=== PATIENT | male | born 1935 | race Caucasian/White ===

== ENCOUNTER 2016-11-13 14:16 | Inpatient (IN) | payer MEDICARE ==
[~2016-11-13] VITALS: Ht 167.6 cm; Wt 67.1 kg
[~2016-11-13 14:16] MED LIST: CEPH500C PO; CLIN300C3 PO; DUTA1CPM PO; FINA5TAB6 PO; HYDR1TAB8 OP; OXYC-12 PO; TMSL.4C PO
[2016-11-13] MEDS ORDERED: fentaNYL INJECTION 100 MCG/2 ML AMP ONE (14:18)
--- NOTE | 2016-11-13 14:29 | ED Abdominal Pain ---
General Chief Complaint: Abdominal/GI Problems Stated Complaint: ABD PAIN Source of Information: Patient Exam Limitations: No Limitations History of Present Illness Time Seen By Provider: 14:27 Initial Comments To ER with reports of epigastric abdominal pain that started relatively suddenly about 1-1.5 hours prior to arrival while eating a lobster club sandwich at [facility] in [place]. No vomiting. No change in bowel habits. No history of this. States he had only taken a few bites of his sandwich when this pain hit him. Pain does not radiate and is worsened with deep breathing. Timing/Duration: 1 Hour Severity/Quality: Severe Location: Epigastric, Periumbilical Radiation: No Radiation Activities at Onset: None Associated Symptoms: No Back Pain, No Fever/Chills, No Nausea/Vomiting Allergies and Home Medications Allergies Coded Allergies: Sulfa (Sulfonamide Antibiotics) (Unverified Allergy, Mild, 02/07/15) Home Medications Finasteride 5 Mg Tablet 5 MG PO DAILY (Reported) Oxycodone Hcl/Acetaminophen 1 Each Tablet #35 1-2 EACH PO Q4H Prescribed by: SOFIA ARELLANO on 02/07/15 1145 Tamsulosin Hcl 0.4 Mg Cap 0.4 MG PO DAILY@1800 (Reported) Review of Systems Constitutional: see HPINo chills, No fever EENTM: No Symptoms Reported Respiratory: No Symptoms Reported Cardiovascular: No Symptoms Reported Gastrointestinal: See HPI Abdominal PainDenies Constipated, Denies Diarrhea, Denies Nausea, Denies Vomiting Genitourinary: No Symptoms Reported Musculoskeletal: no symptoms reported Skin: no symptoms reported Psychiatric/Neurological: No Symptoms Reported Endocrine: No Symptoms Reported Hematologic/Lymphatic: No Symptoms Reported Past Olbdlpc-Bbxpmj-Cdamwn Hx Patient Social History Recent Foreign Travel: No Contact w/Someone Who Travel: No Surgeries HX Surgeries: No Respiratory Hx Respiratory Disorders: No Cardiovascular Hx Cardiac Disorders: No Neurological Hx Neurological Disorders: No Reproductive System Hx Reproductive Disorders: No Sexually Transmitted Disease: No HIV/AIDS: No Genitourinary Hx Genitourinary Disorders: Yes Genitourinary Disorders: Benign Prostatic Hyperpl Gastrointestinal Hx Gastrointestinal Disorders: No Musculoskeletal Hx Musculoskeletal Disorders: No HEENT HX ENT Disorders: Yes (GLASSES) Loss of Vision: Denies Hearing Impairment: Denies Cancer Hx Cancer: No Psychosocial Hx Psychiatric Problems: No Integumentary HX Skin/Integumentary Disorder: No Blood Transfusions Hx Blood Disorders: No Adverse Reaction to a Blood Tr: No Physical Exam Vital Signs VS - Last 72 Hours, by Label 11/13/16 14:18 Temp 96.6 Pulse 67 Resp 18 B/P 126/96 O2 Delivery Room Air Capillary Refill : General Appearance: WD/WN no apparent distress HEENT: PERRL/EOMI normal ENT inspection Neck: non-tender full range of motion Respiratory: no respiratory distress no accessory muscle use Cardiovascular: regular rate, rhythm no murmur Gastrointestinal: normal bowel sounds soft tenderness Extremities: normal range of motion non-tender Neurologic/Psychiatric: alert normal mood/affect oriented x 3 Skin: normal color warm/dry Progress/Results/Core Measures Results/Orders Lab Results Laboratory Tests Test 11/13/16 14:25 Range/Units Alanine Aminotransferase (ALT/SGPT) 21 0-55 U/L Albumin 4.2 3.2-4.5 G/DL Alkaline Phosphatase 80 40-136 U/L Amylase Level 54 25-125 U/L Anion Gap 11 5-14 MMOL/L Aspartate Amino Transf (AST/SGOT) 21 5-34 U/L BUN/Creatinine Ratio 17 Basophils # (Auto) 0.0 0.0-0.1 10^3/uL Basophils (%) (Auto) 1 0-10 % Blood Urea Nitrogen 24 H 7-18 MG/DL Calcium Level 8.9 8.5-10.1 MG/DL Carbon Dioxide Level 24 21-32 MMOL/L Chloride Level 105 98-107 MMOL/L Creatinine 1.41 H 0.60-1.30 MG/DL Eosinophils # (Auto) 0.1 0.0-0.3 10^3/uL Eosinophils (%) (Auto) 2 0-10 % Estimat Glomerular Filtration Rate 48 Glucose Level 125 H 70-105 MG/DL Hematocrit 48 40-54 % Hemoglobin 16.0 13.3-17.7 G/DL Lipase 15 8-78 U/L Lymphocytes # (Auto) 1.0 1.0-4.0 X 10^3 Lymphocytes (%) (Auto) 16 12-44 % Mean Corpuscular Hemoglobin 31 25-34 PG Mean Corpuscular Hemoglobin Concent 34 32-36 G/DL Mean Corpuscular Volume 93 80-99 FL Mean Platelet Volume 10.0 7.4-10.4 FL Monocytes # (Auto) 0.5 0.0-1.0 X 10^3 Monocytes (%) (Auto) 8 0-12 % Neutrophils # (Auto) 4.6 1.8-7.8 X 10^3 Neutrophils (%) (Auto) 74 42-75 % Platelet Count 235 130-400 10^3/uL Potassium Level 4.2 3.6-5.0 MMOL/L Red Blood Count 5.10 4.35-5.85 10^6/uL Red Cell Distribution Width 14.7 H 10.0-14.5 % Sodium Level 140 135-145 MMOL/L Total Bilirubin 2.0 H 0.1-1.0 MG/DL Total Protein 6.5 6.4-8.2 G/DL White Blood Count 6.2 4.3-11.0 10^3/uL My Orders Orders-JACEY RODRIGEZ APRN Fentanyl Injection (Sublimaze Injection (11/13/16 14:30) Fentanyl Injection (Sublimaze Injection (11/13/16 14:18) Amylase (11/13/16 14:25) Iohexol Injection (Omnipaque 350 Mg/Ml 1 (11/13/16 14:30) Ns (Ivpb) (Sodium Chloride 0.9% Ivpb Bag (11/13/16 14:30) Ondansetron Injection (Zofran Injectio (11/13/16 14:30) Ct Abdomen/Pelvis Wo (11/13/16 14:59) Fentanyl Injection (Sublimaze Injection (11/13/16 15:45) Ondansetron Injection (Zofran Injectio (11/13/16 15:45) Medications Given in ED Current Medications Medications Dose Ordered Sig/Salvador Route Start Time Stop Time Status Last Admin Dose Admin Fentanyl Citrate 50 mcg ONCE ONCE IVP 11/13/16 14:30 11/13/16 14:31 DC 11/13/16 14:24 50 MCG Fentanyl Citrate 50 mcg ONCE ONCE IVP 11/13/16 15:45 11/13/16 15:46 DC 11/13/16 15:41 50 MCG Ondansetron HCl 4 mg ONCE ONCE IVP 11/13/16 14:30 11/13/16 14:31 DC 11/13/16 14:48 4 MG Ondansetron HCl 4 mg ONCE ONCE IVP 11/13/16 15:45 11/13/16 15:46 DC 11/13/16 15:43 4 MG Vital Signs/I&O Vital Sign - Last 12Hours 11/13/16 14:18 Temp 96.6 Pulse 67 Resp 18 B/P 126/96 O2 Delivery Room Air Diagnostic Imaging Diagonstic Imaging: CT Comments NAME: JACEY GALAVIZ JR [facility] REC#: [id number] PT STATUS: REG ER : 1935 PHYSICIAN: JACEY RODRIGEZ [employer] ADMIT DATE: 11/13/16/ER Draft Date of Exam:11/13/16 CT ABDOMEN/PELVIS WO PROCEDURE: CT abdomen and pelvis without contrast. TECHNIQUE: Multiple contiguous axial images were obtained through the abdomen and pelvis without the use of intravenous contrast. INDICATION: Severe abdominal pain and nausea. FINDINGS: Noncontrasted images of the liver and spleen reveal no focal abnormality although there is high-density material in the dependent portion of the gallbladder fundus. There is no evidence of biliary ductal dilatation. Note is made of large paraesophageal hiatal hernia. Stomach is distended with gas and fluid. There is no evidence of pancreatic or adrenal gland lesion. There is no evidence of renal stone, hydronephrosis or mass. There is a small amount of high-density material along the right trigone and in the dependent portion of the bladder. There is no free fluid seen in the abdomen or pelvis. There are numerous diverticula throughout the distal colon without evidence of andrés-colonic edema or inflammation. There is no focal fluid collection seen to indicate an abscess. There is mild to moderate lower lumbar spondylosis. IMPRESSION: Moderate sized paraesophageal hiatal hernia. There is evidence of cholelithiasis. There is high density material seen within the distal right ureter at the level of the trigone and within the dependent portion of the bladder. These do not have the appearance of individual calculi; however, clinical correlation would be of use. Otherwise, there is no evidence of acute abnormality seen in the abdomen or pelvis. Dictated on workstation # [id number] Dict: 11/13/16 1524 Trans: 11/13/16 1535 [facility] [id number] Interpreted by: DINH MURILLO MD Electronically signed by: Departure Communication Time/Spoke to Admitting Phy: 15:50 Communication Discussed the case with Dr. Anderson. We will place the patient in the hospital overnight with pain and nausea medication. Does not recommend antibiotics given the normal white count and the absence of fevers and we are not treating acute cholecystitis, rather symptomatic cholelithiasis. Patient's pain has been difficult to control as well as his nausea while in the emergency room. Ultrasound of the gallbladder cannot be performed at this time given that he has eaten one hour prior to arrival. Time/Spoke to Consulting Physi: 15:56 Impression Impression: Primary Impression: Cholelithiasis Additional Impression: Hiatal hernia Disposition: ADMITTED INPATIENT Condition: Stable Decision to Admit Reason: Admit from ER (General) Decision to Admit/Date: Nov 13, 2016 Time/Decision to Admit Time: 15:51 Departure-Patient Inst. Referrals: ABIODUN BENAVIDEZ MD (PCP/Family) Primary Care Physician Copy Copies To 1: ABIODUN BENAVIDEZ MD, PETER J APRN Nov 13, 2016 14:29 JACEY RODRIGEZ APRN Nov 13, 2016 14:29
[2016-11-13] MEDS ORDERED: NS 100 ML (IVPB) BAG IV ONE (14:30)
[2016-11-13] MEDS ORDERED: IOHEXOL 350 MG/ML 100 ML (OMNIPAQUE 350) VIAL IV ONE (14:30)
[2016-11-13] MEDS ORDERED: ONDANSETRON 4 MG/2 ML (SDV) Z0FRAN IVP ONE ×2 (14:30→15:45)
[2016-11-13] MEDS ORDERED: fentaNYL INJECTION 100 MCG/2 ML AMP IVP ONE ×2 (14:30→15:45)
[2016-11-13 14:33] LABS: BASOPHILS % (AUTO) 1 % (0-10); EOSINOPHILS # (AUTO) 0.1 10^3/uL (0.0-0.3); EOSINOPHILS % (AUTO) 2 % (0-10); LYMPHOCYTES % (AUTO) 16 % (12-44); MEAN CORPUSCULAR HEMOGLOBIN 31 PG (25-34); MEAN CORPUSCULAR HGB CONC 34 G/DL (32-36); MEAN CORPUSCULAR VOLUME 93 FL (80-99); MONOCYTES # (AUTO) 0.5 X 10^3 (0.0-1.0); MONOCYTES % (AUTO) 8 % (0-12); NEUTROPHILS # (AUTO) 4.6 X 10^3 (1.8-7.8); NEUTROPHILS % (AUTO) 74 % (42-75); PLATELET COUNT 235 10^3/uL (130-400); RED CELL DISTRIBUTION WIDTH 14.7 % (10.0-14.5); WHITE BLOOD COUNT 6.2 10^3/uL (4.3-11.0)
[2016-11-13 14:57] LABS: ALBUMIN 4.2 G/DL (3.2-4.5); CALCIUM 8.9 MG/DL (8.5-10.1); CREATININE SERUM 1.41 MG/DL (0.60-1.30); POTASSIUM 4.2 MMOL/L (3.6-5.0); TOTAL PROTEIN 6.5 G/DL (6.4-8.2)
--- NOTE | 2016-11-13 15:35 | Diagnostic Imaging Report ---
PROCEDURE: CT abdomen and pelvis without contrast. TECHNIQUE: Multiple contiguous axial images were obtained through the abdomen and pelvis without the use of intravenous contrast. INDICATION: Severe abdominal pain and nausea. FINDINGS: Noncontrasted images of the liver and spleen reveal no focal abnormality although there is high-density material in the dependent portion of the gallbladder fundus. There is no evidence of biliary ductal dilatation. Note is made of large paraesophageal hiatal hernia. Stomach is distended with gas and fluid. There is no evidence of pancreatic or adrenal gland lesion. There is no evidence of renal stone, hydronephrosis or mass. There is a small amount of high-density material along the right trigone and in the dependent portion of the bladder. There is no free fluid seen in the abdomen or pelvis. There are numerous diverticula throughout the distal colon without evidence of andrés-colonic edema or inflammation. There is no focal fluid collection seen to indicate an abscess. There is mild to moderate lower lumbar spondylosis. IMPRESSION: Moderate sized paraesophageal hiatal hernia. There is evidence of cholelithiasis. There is high density material seen within the distal right ureter at the level of the trigone and within the dependent portion of the bladder. These do not have the appearance of individual calculi; however, clinical correlation would be of use. Otherwise, there is no evidence of acute abnormality seen in the abdomen or pelvis. Dictated by: Dictated on workstation # [id number]
[2016-11-13] MEDS ORDERED: HYDROmorphone (DILAUDID) 2 MG/ML VIAL ONE (16:52)
[2016-11-13] MEDS ORDERED: HYDROmorphone (DILAUDID) 2 MG/ML VIAL IVP ONE (17:00)
[2016-11-13 17:10] VITALS: BP 122/81
[2016-11-13] MEDS ORDERED: ONDANSETRON 4 MG/2 ML (SDV) Z0FRAN IVP PRN (17:30)
[2016-11-13] MEDS ORDERED: fentaNYL INJECTION 100 MCG/2 ML AMP IVP PRN (17:30)
[2016-11-13] MEDS: NS IV 1000 ML 1,000 ML IV SCH (17:48)
[2016-11-13 19:40] VITALS: BP 115/77
[2016-11-13] MEDS ORDERED: FLU TRIvalent (5 YOA+) 2016-17 (AFLURIA) 0.5 ML IM ONE (20:45)
[2016-11-14] VITALS: BP 114/71
[2016-11-14] MEDS: NS IV 1000 ML 1,000 ML IV SCH ×3 (03:45→23:30)
[2016-11-14 04:00] VITALS: BP 114/71
[2016-11-14 06:00] VITALS: BP 106/63
[2016-11-14 07:17] LABS: ALBUMIN 3.7 G/DL (3.2-4.5); CALCIUM 8.3 MG/DL (8.5-10.1); CREATININE SERUM 1.33 MG/DL (0.60-1.30); POTASSIUM 4.1 MMOL/L (3.6-5.0); TOTAL PROTEIN 5.7 G/DL (6.4-8.2)
[2016-11-14] MEDS ORDERED: LIDOCAINE PF 2% 10 ML (XYLOCAINE) AMP ONE (07:17)
[2016-11-14] MEDS ORDERED: ROCURONIUM 50 MG/5 ML (ZEMURON) VIAL IV ONE (07:17)
[2016-11-14] MEDS ORDERED: LIDOCAINE JELLY 2% (XYLOCAINE) 5 ML TUBE ONE (07:17)
[2016-11-14] MEDS ORDERED: proPOfol 200 MG/20 ML (DIPRIVAN) VIAL IV ONE (07:17)
[2016-11-14] MEDS ORDERED: ONDANSETRON 4 MG/2 ML (SDV) Z0FRAN ONE (07:17)
[2016-11-14] MEDS ORDERED: LACTATED RINGERS 1,000 ML IV ONE ×2 (07:17→11:31)
[2016-11-14] MEDS ORDERED: fentaNYL INJECTION 100 MCG/2 ML AMP ONE (07:17)
[2016-11-14] MEDS ORDERED: MIDAZOLAM 2 MG/2 ML (VERSED) VIAL ONE (07:17)
[2016-11-14 08:28] VITALS: BP 131/71
--- NOTE | 2016-11-14 08:35 | Diagnostic Imaging Report ---
PROCEDURE: US Gallbladder. TECHNIQUE: Multiple real-time grayscale images were obtained over the right upper quadrant in various projections. INDICATION: Symptomatic cholecystitis, cholelithiasis. EXAMINATION: Ultrasound gallbladder 11/14/2016. FINDINGS: Liver unremarkable. Gallbladder wall not thickened. There is sludge in the fundus with no stones identified. No pericholecystic fluid. Common bile duct not seen. Pancreas not visualized. Right kidney 11.1 cm in greatest dimension and unremarkable. IMPRESSION: Sludge in the gallbladder with no other changes suggestive of acute cholecystitis. Small stones not excluded. Correlate with symptoms. Overall limited evaluation. Some of the structures are not well seen. If no intervention is performed, short-term followup could ensure stability. Dictated by: Dictated on workstation # [id number]
--- NOTE | 2016-11-14 08:54 | History & Physicial ---
History of Present Illness History of Present Illness Reason for visit/HPI RUQ pain and nausea of one day's duration. Evaluation shows gallstones with elevated bilirubin. Date of Admission Nov 13, 2016 at 4:10 pm I consulted on this patient on 11/14/16 08:46 Attending Physician Mamie Melchor MD Admitting Physician Paulie Leon MD Consult Allergies and Home Medications Allergies Coded Allergies: Sulfa (Sulfonamide Antibiotics) (Unverified Allergy, Mild, 02/07/15) Home Medications Finasteride 5 Mg Tablet 5 MG PO DAILY (Reported) Tamsulosin Hcl 0.4 Mg Cap 0.4 MG PO DAILY@1800 (Reported) Past Jjieeyz-Ypjoai-Imvfqi Hx Patient Social History Marrital Status: Employed/Student: employed Alcohol Use: Regular Use Recreational Drug Use: No Smoking Status: Never a Smoker Physical Abuse Screen: No Sexual Abuse: No Recent Foreign Travel: No Contact w/other who traveled: No Recent Hopitalizations: No Recent Infectious Disease Expo: No Seasonal Allergies Seasonal Allergies: No Surgeries HX Surgeries: No Respiratory Hx Respiratory Disorders: No Cardiovascular Hx Cardiovascular Disorders: No Cardiac Disorders: Hypertension Neurological Hx Neurological Disorders: No Reproductive System Hx Reproductive Disorders: No Sexually Transmitted Disease: No HIV/AIDS: No Genitourinary Hx Genitourinary Disorders: No Genitourinary Disorders: Benign Prostatic Hyperpl Gastrointestinal Hx Gastrointestinal Disorders: No Gastrointestinal Disorders: Hiatal Hernia Musculoskeletal Hx Musculoskeletal Disorders: No Endocrine Hx Endocrine Disorders: No HEENT HX ENT Disorders: No (GLASSES) Loss of Vision: Denies Hearing Impairment: Denies Cancer Hx Cancer: No Psychosocial Hx Psychiatric Problems: No Integumentary HX Skin/Integumentary Disorder: No Blood Transfusions Hx Blood Disorders: No Adverse Reaction to a Blood Tr: No Constitutional: malaise EENTM: no symptoms reported Respiratory: no symptoms reported Cardiovascular: no symptoms reported Gastrointestinal: RUQ abdominal pain Genitourinary: no symptoms reported Musculoskeletal: no symptoms reported Skin: no symptoms reported Psychiatric/Neurological: No Symptoms Reported Physical Exam Vital Signs Vital Sign - Last 12Hours 11/13/16 11/13/16 14:18 16:52 Temp 96.6 Pulse 67 Resp 18 B/P 126/96 Pulse Ox 95 O2 Delivery Room Air Capillary Refill : Less Than 3 Seconds General Appearance: No Apparent Distress HEENT: PERRL/EOMI Neck: Full Range of Motion Normal Inspection Respiratory: Lungs Clear Cardiovascular: Regular Rate, Rhythm Gastrointestinal: Normal Bowel Sounds Non Tender Back: Normal Inspection Extremity: Normal Capillary Refill Skin: Warm/Dry Comments Mendoza's sign negative. No recurrence of RIH Assessment/Plan Assessment and Plan Gallstones with elevated bilirubin. Choledocholithiasis to be considered. For laparoscopic cholecystectomy with cholangiogram. Discussed in detail and scheduled for this am. Admission Diagnosis Gallstones Clinical Quality Measures DVT/VTE Risk/Contraindication: VTE Present on Admission: No Risk Factor Score Per Nursin RFS Level Per Nursing on Admit: 2=Moderate MAMIE MELCHOR MD Nov 14, 2016 8:53 am
--- NOTE | 2016-11-14 08:55 | Progress Note-Pre Operative ---
Pre-Operative Progress Note H&P Reviewed The H&P was reviewed, patient examined and no changes noted. Date H&P Reviewed: Nov 14, 2016 Time H&P Reviewed: 08:54 Pre-Operative Diagnosis: Gallstones with elevated liver enzymes MAMIE MELCHOR MD Nov 14, 2016 8:54 am
[2016-11-14] MEDS ORDERED: ceFAZolin INJECTION 1,000 MG in NORMAL SALINE (BAXTER MINI) 50 ML IV NR (09:00)
[2016-11-14] MEDS ORDERED: metroNIDAZOLE 500MG/100ML IVPB 100 ML IV NR (09:00)
[2016-11-14] MEDS: FINASTERIDE (PROSCAR) 5 MG TAB PO SCH (09:04)
[2016-11-14] MEDS: PANTOPRAZOLE 40 MG/10 ML (PROTONIX) VIAL IV SCH (09:05)
[2016-11-14] MEDS ORDERED: SEVOFLURANE (ULTANE) 15 ML INHAL SOLN ONE ×5 (10:33→11:30)
[2016-11-14] MEDS ORDERED: BUP/EPI 0.25% 1:200,000 (MARCAINE) 30 ML VIAL INJ ONE (10:43)
--- NOTE | 2016-11-14 11:35 | Progress Note-Post Operative ---
Post-Operative Progess Note Pre-Operative Diagnosis Gallstones with elevated liver enzymes Post-Operative Diagnosis same Post-Op Procedure Note Date of Procedure: Nov 14, 2016 Name of Procedure: 1.laparoscopic cholecystectomy 2. Intraoperative cholangiogram Anesthesia Type Gen. Estimated blood loss (mL): minimal Specimen(s) collected gallbladder MAMIE MELCHOR MD Nov 14, 2016 11:35 am
[2016-11-14] MEDS ORDERED: HYDR-3812 PO (11:38)
--- NOTE | 2016-11-14 11:39 | Discharge Inst-Simple/Standard ---
Discharge Inst-Standard Discharge Medications New, Converted or Re-Newed RX: RX on Chart Patient Instructions/Follow Up Plan of Care/Instructions/FU: dressings off in a.m. Incentive spirometry. Follow-up in 2 weeks. Activity as Tolerated: Yes Discharge Diet: No Restrictions Planned Outpatient Orders/Ref. Pneu Vac Indicated: Yes MAMIE MELCHOR MD Nov 14, 2016 11:39 am
[2016-11-14] MEDS ORDERED: NEOSTIGMINE (BLOXIVERZ ) 1 MG/1ML 10 ML VIAL ONE (11:43)
[2016-11-14] MEDS ORDERED: GLYCOPYRROLATE 0.2 MG/ML (ROBINUL) 2 ML VIAL ONE (11:43)
[2016-11-14] MEDS ORDERED: HYDROcodone/APAP 5 MG/325 MG (LORTAB) TAB PO PRN (11:45)
[2016-11-14] MEDS: morphine INJ 10 MG/ML 1ML (SYR OR VIAL) IVP PRN ×2 (11:57→12:04)
[2016-11-14] MEDS ORDERED: morphine INJ 10 MG/ML 1ML (SYR OR VIAL) IV ONE (11:57)
[2016-11-14] MEDS ORDERED: MEPERIDINE (DEMEROL) INJ 50 MG/ML IVP PRN (12:00)
[2016-11-14] MEDS ORDERED: ONDANSETRON 4 MG/2 ML (SDV) Z0FRAN IVP PRN (12:00)
[2016-11-14] MEDS ORDERED: MEPERIDINE (DEMEROL) INJ 50 MG/ML IV ONE (12:12)
[2016-11-14 16:49] VITALS: BP 128/73
[2016-11-14] MEDS ORDERED: ALFUZOSIN HCL 10 MG TAB (UROXATRAL) PO SCH (18:00)
--- NOTE | 2016-11-14 18:35 | Diagnostic Imaging Report ---
Exam: Fluoroscopy during surgery. Date: October. Indication: 81-year-old male, status post cholecystectomy. Comparison: November 14, 2016. November 13, 2016. Findings: 62.4 seconds of fluoroscopic time was utilized for assistance with procedure. There is opacification of the common bile duct with extension of contrast into the duodenum. There is no identified filling defect within the duodenum. There is also contrast in the right upper quadrant which does not definitely conform to a ductal distribution. Recommend correlation with procedure. Impression: 1. No identified filling defect or abnormal dilation of the common bile duct. 2. Contrast in the right upper quadrant which does not definitely conform to a ductal distribution. Recommend correlation with procedural findings. Dictated by: Dictated on workstation # [id number]
[2016-11-14 20:44] VITALS: BP 122/66
[2016-11-15] VITALS: BP 117/65
[2016-11-15 04:00] VITALS: BP 108/52
[2016-11-15] MEDS: NS IV 1000 ML 1,000 ML IV SCH (06:43)
[2016-11-15 08:00] VITALS: BP 137/63
[2016-11-15] MEDS: PANTOPRAZOLE 40 MG/10 ML (PROTONIX) VIAL IV SCH (09:02)
[2016-11-15] MEDS: FINASTERIDE (PROSCAR) 5 MG TAB PO SCH (09:02)
--- NOTE | 2016-11-15 10:57 | Anesthesia-General Post-Op ---
General Patient Condition Mental Status/LOC: Same as Preop Cardiovascular: Satisfactory Nausea/Vomiting: Absent Respiratory: Satisfactory Pain: Controlled Complications: Absent Post Op Complications Complications None Follow Up Care/Instructions Patient Instructions None needed. Anesthesia/Patient Condition Patient Condition Patient is doing well, no complaints, stable vital signs, no apparent adverse anesthesia problems. No complications reported per nursing. Pt to be discharged to home shortly. JOB HICKS CRNA Nov 15, 2016 10:57
--- NOTE | 2016-11-15 11:43 | Progress Note-Standard ---
Standard Progress Note Progress Notes/Assess & Plan Progress/Assessment & Plan 11/15/16:doing well. Low-grade fever, currently afebrile. Pain control adequate. Could be discharged home. Final Diagnosis gallstones with choledocholithiasis. MAMIE MELCHOR MD Nov 15, 2016 11:43 am
[2016-11-15 12:00] VITALS: BP 137/63
--- NOTE | 2016-11-15 12:42 | OPERATIVE REPORT ---
PROCEDURE PHYSICIAN: MAMIE MELCHOR DATE OF PROCEDURE: 11/14/2016 PREOPERATIVE DIAGNOSIS: 1. Gallstones. 2. Elevated liver enzymes. POSTOPERATIVE DIAGNOSIS: 1. Gallstones. 2. Elevated liver enzymes. OPERATION: 1. Laparoscopic cholecystectomy. 2. Intraoperative cholangiogram. SURGEON: Justin. ANESTHESIA: General anesthesia. BLOOD LOSS: Minimal. FLUIDS: 800 mL crystalloids. TYPE OF WOUND: Type 2 (clean/contaminant wound). INDICATION FOR PROCEDURE: This gentleman presented with gallstones and elevated bilirubin, raising the concern for choledocholithiasis. He was offered prompt laparoscopic cholecystectomy with cholangiogram. Should stones be found in the common bile duct, the requirement for therapeutic ERCP was highlighted. DESCRIPTION OF PROCEDURE: He was placed supine on the operating table and general anesthesia induced using an endotracheal. A gram of Ancef and 500 mg of Flagyl were administered intravenously as prophylaxis against wound infection. Sequential compression devices were placed around his legs, to minimize the risk of venous thrombus. Abdomen was prepared and draped in the usual sterile manner. A supraumbilical incision was made and the linea alba incised vertically. A Linn cannula was placed and carbon dioxide insufflated to an intra-abdominal pressure of 15 mmHg. Anatomy was visualized using a 30 degrees, conventional laparoscope. The gallbladder was rather elongated. Under direct view, I placed a 5 mm trocar over the epigastric region, followed by 2 additional 5 mm trocars along the right side of the abdomen. The fundus of the gallbladder was retracted cephalad and infundibulum grasped with another pair of forceps. Peritoneum overlying Calot's triangle was incised using a blunt dissector, delineating the cystic duct and artery. Cholangiogram was obtained using a taut catheter. Multiple black pigmented stones extruded from the cystic duct stump. The study itself showed no other filling defects and the contrast eventually flowed freely into the duodenum. The catheter was then removed and the cystic duct controlled using a Ligaclip, reinforced with a PDS Endoloop. It was followed by division of the cystic artery between Ligaclips. Cholecystectomy was completed using the hook cautery. Intra-abdominal pressure was reduced to 11 mmHg, looking for a bleeding. A few areas were encountered and controlled easily using cautery. Subhepatic space was then irrigated with saline and the gallbladder placed in an Endo Catch bag to be removed via trocar site. Subsequently, linea alba was closed using number 1 Vicryl and skin with 4-0 Vicryl, in a subcuticular fashion. 0.25% Marcaine with epinephrine was infiltrated along the incisions, both preemptively and at the conclusion of the operation. He tolerated the procedure well, was extubated in the operating room and taken to the recovery room in a stable condition. [place], sponges, and instruments were correct the end of the operation. Job ID: [id number] Dictated Date: 11/14/2016 11:34:59 Maintenance Service Technician Date: 11/15/2016 12:31:45 / herberth BURGOS
== END 2016-11-15 12:15 | disposition home or self-care (01) | DRG 419 ==
LOC: EDUNIT# 14:16 → ER 14:18 → 4TH 16:10
PROVIDERS: ADMIT Surgery; ATTEND Surgery
PROC: BF101ZZ Fluoroscopy of Bile Ducts using Low Osmolar Contrast (ICD-10-PCS; 2016-11-14)
PROC: 0FT44ZZ Resection of Gallbladder, Percutaneous Endoscopic Approach (ICD-10-PCS; principal; 2016-11-14 10:20)
DX: K80.70 Calculus of gallbladder and bile duct without cholecystitis without obstruction (principal); K44.9 Diaphragmatic hernia without obstruction or gangrene; I10 Essential (primary) hypertension; N40.0 Benign prostatic hyperplasia without lower urinary tract symptoms
CPT/HCPCS: 36415; 74176; 76705; 80053; 82150; 83690; 85025; 94664; 96374; 96375; 96376

== ENCOUNTER 2017-09-15 09:14 | Observation (INO) | payer MEDICARE ==
[~2017-09-15] VITALS: Ht 165.1 cm; Wt 70.1 kg
[~2017-09-15 09:14] MED LIST changes: +HYDR-3812 PO
[2017-09-15 10:08] LABS: BASOPHILS % (AUTO) 0 % (0-10); EOSINOPHILS # (AUTO) 0.1 10^3/uL (0.0-0.3); EOSINOPHILS % (AUTO) 1 % (0-10); LYMPHOCYTES # (AUTO) 0.6 X 10^3 (1.0-4.0); LYMPHOCYTES % (AUTO) 7 % (12-44); MEAN CORPUSCULAR HEMOGLOBIN 32 PG (25-34); MEAN CORPUSCULAR HGB CONC 34 G/DL (32-36); MEAN CORPUSCULAR VOLUME 94 FL (80-99); MONOCYTES # (AUTO) 0.3 X 10^3 (0.0-1.0); MONOCYTES % (AUTO) 4 % (0-12); NEUTROPHILS # (AUTO) 8.1 X 10^3 (1.8-7.8); NEUTROPHILS % (AUTO) 89 % (42-75); PLATELET COUNT 209 10^3/uL (130-400); RED BLOOD COUNT 5.03 10^6/uL (4.35-5.85); RED CELL DISTRIBUTION WIDTH 14.1 % (10.0-14.5); WHITE BLOOD COUNT 9.1 10^3/uL (4.3-11.0)
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
[2017-09-15 10:25] LABS: BAND NEUTROPHILS 0 %; BASOPHILS % (MANUAL) 0 %; EOSINOPHILS % (MANUAL) 0 %; LYMPHOCYTES % (MANUAL) 4 %; NEUTROPHILS % (MANUAL) 89 %
[2017-09-15 10:26] LABS: BILIRUBIN,TOTAL 1.9 MG/DL (0.1-1.0); CREATININE SERUM 1.33 MG/DL (0.60-1.30); POTASSIUM 4.1 MMOL/L (3.6-5.0); TOTAL PROTEIN 6.5 GM/DL (6.4-8.2)
[2017-09-15 11:06] LABS: BILIRUBIN,URINE NEGATIVE (NEGATIVE); KETONES,URINE NEGATIVE (NEGATIVE); LEUKOCYTE ESTERASE ,URINE 3+ (NEGATIVE); NITRITE,URINE POSITIVE (NEGATIVE); PH,URINE 6 (5-9); PROTEIN,URINE NEGATIVE (NEGATIVE); UROBILINOGEN,URINE NORMAL (NORMAL)
[2017-09-15] MEDS ORDERED: NS IV 1000 ML 1,000 ML IV ONE (11:16)
--- NOTE | 2017-09-15 11:18 | ED General ---
General Chief Complaint: Abdominal/GI Problems Stated Complaint: ABD PAIN Nursing Triage Note: Pt c/o upper abd pain that started this morning. Pt reports pain is similiar to that when he had his gallbladder removed. Pt also reports vomiting this am. Nursing Sepsis Screen: No Definite Risk Source of Information: Patient Exam Limitations: No Limitations History of Present Illness Time Seen by Provider: 11:17 Initial Comments 82 yo male patient presents to the ED with c/o sudden onset of epigastric pain this AM. Patient reports a similar episode in Oct 2016 when his gallbladder was removed. Patient does complain of vomiting without nausea. States he feels a lot of epigastric pressure, but relieved with vomiting. Denies diarrhea , fever, chills, SOB, or chest pain. Timing/Duration: 1-3 Hours Modifying Factors: improves with Other (improved with vomiting) Allergies and Home Medications Allergies Coded Allergies: Sulfa (Sulfonamide Antibiotics) (Unverified Allergy, Mild, 02/07/15) Home Medications Finasteride 5 Mg Tablet, 5 MG PO DAILY, (Reported) Hydrocodone/Acetaminophen 1 Each Tablet, 1-2 TAB PO 4-6HR PRN for PAIN, #20 Prescribed by: MAMIE MELCHOR on 11/14/16 1138 Tamsulosin Hcl 0.4 Mg Cap, 0.4 MG PO DAILY@1800, (Reported) Constitutional: No chills, No dizziness, No fever, No malaise EENTM: no symptoms reported Respiratory: No cough, No dyspnea on exertion, No orthopnea, No phlegm, No short of breath Cardiovascular: No chest pain, No palpitations Gastrointestinal: see HPI, abdominal pain, No constipation, No diarrhea, No dysphagia, No hematemesis, No heartburn, No melena, No nausea, vomiting Genitourinary: No decreased output, No dysuria, No frequency, No hematuria, No pain Musculoskeletal: no symptoms reported Skin: no symptoms reported Psychiatric/Neurological: No Symptoms Reported All Other Systems Reviewed Negative Unless Noted: Yes (Negative excepted noted.) Past Oqkngah-Gneaud-Vlqndw Hx Patient Social History Alcohol Beverage of Choice: Wine Recent Foreign Travel: No Contact w/Someone Who Travel: No Recent Infectious Disease Expo: No Recent Hopitalizations: No Seasonal Allergies Seasonal Allergies: No Surgeries History of Surgeries: Yes Respiratory History of Respiratory Disorde: No Cardiovascular History of Cardiac Disorders: Yes Cardiac Disorders: Hypertension Neurological History of Neurological Disord: No Reproductive System Hx Reproductive Disorders: No Sexually Transmitted Disease: No HIV/AIDS: No Genitourinary History of Genitourinary Disor: Yes Genitourinary Disorders: Benign Prostatic Hyperpl Gastrointestinal History of Gastrointestinal Di: Yes Gastrointestinal Disorders: Hiatal Hernia Musculoskeletal History of Musculoskeletal Dis: No Endocrine History of Endocrine Disorders: No HEENT Loss of Vision: Denies Hearing Impairment: Denies Blood Transfusions Adverse Reaction to a Blood Tr: No Reviewed Nursing Assessment Reviewed/Agree w Nursing PMH: Yes Family Medical History Significant Family History: No Pertinent Family Hx Physical Exam Vital Signs Vital Sign - Last 12Hours 09/15/17 09:32 Temp 97.1 Pulse 88 Resp 18 B/P (MAP) 133/79 Pulse Ox 96 O2 Delivery Room Air Capillary Refill : Less Than 3 Seconds Progress/Results/Core Measures Results/Orders Lab Results Laboratory Tests Test 09/15/17 10:03 09/15/17 11:00 Range/Units White Blood Count 9.1 4.3-11.0 10^3/uL Red Blood Count 5.03 4.35-5.85 10^6/uL Hemoglobin 16.0 13.3-17.7 G/DL Hematocrit 47 40-54 % Mean Corpuscular Volume 94 80-99 FL Mean Corpuscular Hemoglobin 32 25-34 PG Mean Corpuscular Hemoglobin Concent 34 32-36 G/DL Red Cell Distribution Width 14.1 10.0-14.5 % Platelet Count 209 130-400 10^3/uL Mean Platelet Volume 10.0 7.4-10.4 FL Neutrophils (%) (Auto) 89 H 42-75 % Lymphocytes (%) (Auto) 7 L 12-44 % Monocytes (%) (Auto) 4 0-12 % Eosinophils (%) (Auto) 1 0-10 % Basophils (%) (Auto) 0 0-10 % Neutrophils # (Auto) 8.1 H 1.8-7.8 X 10^3 Lymphocytes # (Auto) 0.6 L 1.0-4.0 X 10^3 Monocytes # (Auto) 0.3 0.0-1.0 X 10^3 Eosinophils # (Auto) 0.1 0.0-0.3 10^3/uL Basophils # (Auto) 0.0 0.0-0.1 10^3/uL Neutrophils % (Manual) 89 % Lymphocytes % (Manual) 4 % Monocytes % (Manual) 7 % Eosinophils % (Manual) 0 % Basophils % (Manual) 0 % Band Neutrophils 0 % Blood Morphology Comment NORMAL Sodium Level 141 135-145 MMOL/L Potassium Level 4.1 3.6-5.0 MMOL/L Chloride Level 107 98-107 MMOL/L Carbon Dioxide Level 23 21-32 MMOL/L Anion Gap 11 5-14 MMOL/L Blood Urea Nitrogen 21 H 7-18 MG/DL Creatinine 1.33 H 0.60-1.30 MG/DL Estimat Glomerular Filtration Rate 52 BUN/Creatinine Ratio 16 Glucose Level 117 H 70-105 MG/DL Calcium Level 9.0 8.5-10.1 MG/DL Total Bilirubin 1.9 H 0.1-1.0 MG/DL Aspartate Amino Transf (AST/SGOT) 17 5-34 U/L Alanine Aminotransferase (ALT/SGPT) 17 0-55 U/L Alkaline Phosphatase 81 40-136 U/L Total Protein 6.5 6.4-8.2 GM/DL Albumin 4.0 3.2-4.5 GM/DL Lipase 18 8-78 U/L Urine Color YELLOW Urine Clarity CLEAR Urine pH 6 5-9 Urine Specific Leivasy 1.015 L 1.016-1.022 Urine Protein NEGATIVE NEGATIVE Urine Glucose (UA) NEGATIVE NEGATIVE Urine Ketones NEGATIVE NEGATIVE Urine Nitrite POSITIVE H NEGATIVE Urine Bilirubin NEGATIVE NEGATIVE Urine Urobilinogen NORMAL NORMAL MG/DL Urine Leukocyte Esterase 3+ H NEGATIVE Urine RBC (Auto) 2+ H NEGATIVE Urine RBC NONE /HPF Urine WBC 5-10 H /HPF Urine Squamous Epithelial Cells NONE /HPF Urine Crystals NONE /LPF Urine Amorphous Sediment LARGE LUIS ENRIQUE URATES H /LPF Urine Bacteria MODERATE H /HPF Urine Casts NONE /LPF Urine Mucus NEGATIVE /LPF Urine Culture Indicated YES My Orders Orders - BARRY HARTMAN Ns Iv 1000 Ml (Sodium Chloride 0.9%) (09/15/17 11:16) Ceftriaxone Injection (Rocephin Injectio (09/15/17 11:30) Ondansetron Injection (Zofran Injectio (09/15/17 11:30) Ondansetron Injection (Zofran Injectio (09/15/17 12:00) Hyoscyamine Sl Tablet (Levsin Sl Tablet) (09/15/17 12:00) Ct Abdomen/Pelvis Wo (09/15/17 11:57) Medications Given in ED Current Medications Medications Dose Ordered Sig/Salvador Route Start Time Stop Time Status Last Admin Dose Admin Ceftriaxone Sodium 1000 mg/ Sodium Chloride 50 ml @ 100 mls/hr ONCE ONCE IV 09/15/17 11:30 09/15/17 11:59 DC 09/15/17 11:27 100 MLS/HR Hyoscyamine Sulfate 0.125 mg ONCE ONCE PO 09/15/17 12:00 09/15/17 12:01 DC 09/15/17 11:56 0.125 MG Ondansetron HCl 4 mg ONCE ONCE IVP 09/15/17 11:30 09/15/17 11:31 DC 09/15/17 11:27 4 MG Ondansetron HCl 4 mg ONCE ONCE IVP 09/15/17 12:00 09/15/17 12:01 DC 09/15/17 11:56 4 MG Sodium Chloride 1,000 ml @ 0 mls/hr Q0M ONCE IV 09/15/17 11:16 09/15/17 11:18 DC 09/15/17 11:27 0 MLS/HR Vital Signs/I&O Vital Sign - Last 12Hours 09/15/17 09:32 Temp 97.1 Pulse 88 Resp 18 B/P (MAP) 133/79 Pulse Ox 96 O2 Delivery Room Air Blood Pressure Mean: 97 Diagnostic Imaging Diagonstic Imaging: CT Plain Films/CT/US/NM/MRI: abdomen, pelvis Comments findings of a large gastric volvulus. Reviewed: Discussed w/Radiologist (discussed with Dr. Lozano) Departure Impression Impression: Primary Impression: Gastric volvulus Departure-Patient Inst. Referrals: ABIODUN BENAVIDEZ MD (PCP/Family) Primary Care Physician BARRY HARTMAN Sep 15, 2017 11:17
[2017-09-15] MEDS ORDERED: ONDANSETRON 4 MG/2 ML (SDV) Z0FRAN IVP ONE ×2 (11:30→12:00)
[2017-09-15] MEDS ORDERED: cefTRIAXone INJECTION 1,000 MG in NS (IVPB) 50 ML IV ONE (11:30)
[2017-09-15] MEDS ORDERED: HYOSCYAMINE 0.125 MG (LEVSIN) TAB PO ONE (12:00)
--- NOTE | 2017-09-15 13:17 | Diagnostic Imaging Report ---
PROCEDURE: CT abdomen and pelvis without contrast. TECHNIQUE: Multiple contiguous axial images were obtained through the abdomen and pelvis without the use of intravenous contrast. INDICATION: Abdominal pain. Vomiting. FINDINGS: The lung bases demonstrate minimal atelectasis. There is a moderate to large hiatal hernia incompletely visualized within the ixyel-vc-ffjc of this exam. The herniating stomach is the distal body and antrum and is distended with fluid. The GE junction is at the hiatus level and the fundus and the proximal body are distended with an air-fluid level. This is suggestive of a gastric volvulus. The configuration is in favor of mesenteroaxial type volvulus. The small bowel loops and colon are normal in caliber. There is prominent diverticulosis. No evidence of diverticulitis. The appendix is normal. No significant free fluid or fluid collection in the abdomen or pelvis. The prostate is mildly enlarged at 5.1 cm in transverse dimension. The liver, the spleen, the adrenal glands, and the pancreas appear unremarkable. Cholecystectomy clips are seen. The kidneys have no hydronephrosis. No urinary tract stones are seen. There is a small amount of herniating fat in the right inguinal region with appearance suggestive of small direct and small indirect left inguinal hernias. The osseous structures demonstrate advanced degenerative changes. IMPRESSION: There is a large hiatal hernia with large fluid distention of the distal stomach within the hernia. The proximal stomach is in the left upper quadrant with a prominent air-fluid level. 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 The findings were discussed with CHARLOTTE Peraza taking care of the patient at time of dictation. Dictated by: Dictated on workstation # [id number]
[2017-09-15] MEDS ORDERED: TAMS0.4C2 PO (13:33)
[2017-09-15] MEDS ORDERED: FINA5TAB6 PO (13:33)
[2017-09-15 14:58] VITALS: BP 136/95
[2017-09-15] MEDS ORDERED: KETOROLAC 15 MG/ML VIAL IV PRN (15:15)
[2017-09-15] MEDS ORDERED: HYOSCYAMINE 0.125 MG (LEVSIN) TAB SL PRN (15:15)
[2017-09-15] MEDS ORDERED: DIAZEPAM INJ 10 MG/2 ML (VALIUM) SYR IV PRN (15:15)
[2017-09-15] MEDS ORDERED: ONDANSETRON 4 MG/2 ML (SDV) Z0FRAN IV PRN (15:15)
[2017-09-15] MEDS ORDERED: morphine INJ 4 MG/ML 1 ML (VIAL/SYRINGE) IV PRN (15:15)
[2017-09-15] MEDS: NS IV 1000 ML 1,000 ML IV SCH ×2 (15:16→20:50)
[2017-09-15 16:00] VITALS: BP 136/95
[2017-09-15] MEDS ORDERED: INFLUENZA TRIvalent 2017-2018 0.5 ML/45 MCG SYR IM ONE (16:15)
--- NOTE | 2017-09-15 16:59 | History & Physicial ---
History of Present Illness History of Present Illness Reason for visit/HPI 82-year-old male presents with a 12 hour history of abdominal pain primarily in the epigastric region. He does report he was fine yesterday evening. Patient had called me this morning and due to his severity of symptom he was informed to proceed to the emergency Department. Apparently patient had ate breakfast and shortly afterwards had most of the discomfort. At that time he thought perhaps his gallbladder was bothering him but he had this removed within the last year. He does report it was a fairly similar discomfort. He has currently loss of appetite. Date of Admission Sep 15, 2017 at 14:17 Date Seen by Provider: Sep 15, 2017 Time Seen by Provider: 17:30 I consulted on this patient on 09/15/17 16:56 Attending Physician Paulie Benavidez MD Admitting Physician Paulie Benavidez MD Consult Allergies and Home Medications Allergies Coded Allergies: Sulfa (Sulfonamide Antibiotics) (Unverified Allergy, Mild, 02/07/15) Home Medications Finasteride 5 Mg Tablet, 5 MG PO DAILY, (Reported) Tamsulosin HCl 0.4 Mg Cap.er.24h, 0.4 MG PO HS, (Reported) Past Ugipcjv-Bjgxto-Cxzcwj Hx Patient Social History Marrital Status: Alcohol Use: Occasionally Uses Number of Drinks Today: 0 Alcohol Beverage of Choice: Wine Recreational Drug Use: No Smoking Status: Never a Smoker Physical Abuse Screen: No Sexual Abuse: No Recent Foreign Travel: No Contact w/other who traveled: No Recent Hopitalizations: No Recent Infectious Disease Expo: No Immunizations Up To Date Date of Influenza Vaccine: Sep 15, 2007 Seasonal Allergies Seasonal Allergies: No Surgeries Yes Gallbladder Respiratory No Cardiovascular No Hypertension Neurological No Reproductive System Hx Reproductive Disorders: No Sexually Transmitted Disease: No HIV/AIDS: No Genitourinary Yes Benign Prostatic Hyperpl Gastrointestinal Yes Hiatal Hernia Musculoskeletal No Endocrine History of Endocrine Disorders: No HEENT History of HEENT Disorders: No Loss of Vision: Denies Hearing Impairment: Denies Cancer No Psychosocial History of Psychiatric Problem: No Integumentary History of Skin or Integumenta: No Blood Transfusions History of Blood Disorders: No Adverse Reaction to a Blood Tr: No Reviewed Nursing Assessment Reviewed/Agree w Nursing PMH: Yes Family Medical History Significant Family History: No Pertinent Family Hx Family Hx: Cardiovascular disease 19 MOTHER, Onset:60 years & older Constitutional: see HPI Physical Exam Vital Signs Vital Sign - Last 12Hours 09/15/17 09:32 Temp 97.1 Pulse 88 Resp 18 B/P (MAP) 133/79 Pulse Ox 96 O2 Delivery Room Air Capillary Refill : Less Than 3 Seconds General Appearance: Mild Distress HEENT: Pharynx Normal Neck: Supple Respiratory: Lungs Clear Cardiovascular: Regular Rate, Rhythm Gastrointestinal: Soft (And there is no rebound tenderness or guarding. Exam time was late afternoon) Rectal: Deferred Back: Normal Inspection Extremity: Normal Capillary Refill Comments NAME: JACEY GALAVIZ JR [facility] REC#: [id number] PT STATUS: REG ER : 1935 PHYSICIAN: BARRY HARTMAN ADMIT DATE: 09/15/17/ER Signed Date of Exam: 09/15/17 CT ABDOMEN/PELVIS WO PROCEDURE: CT abdomen and pelvis without contrast. TECHNIQUE: Multiple contiguous axial images were obtained through the abdomen and pelvis without the use of intravenous contrast. INDICATION: Abdominal pain. Vomiting. FINDINGS: The lung bases demonstrate minimal atelectasis. There is a moderate to large hiatal hernia incompletely visualized within the tings-vs-hygv of this exam. The herniating stomach is the distal body and antrum and is distended with fluid. The GE junction is at the hiatus level and the fundus and the proximal body are distended with an air-fluid level. This is suggestive of a gastric volvulus. The configuration is in favor of mesenteroaxial type volvulus. The small bowel loops and colon are normal in caliber. There is prominent diverticulosis. No evidence of diverticulitis. The appendix is normal. No significant free fluid or fluid collection in the abdomen or pelvis. The prostate is mildly enlarged at 5.1 cm in transverse dimension. The liver, the spleen, the adrenal glands, and the pancreas appear unremarkable. Cholecystectomy clips are seen. The kidneys have no hydronephrosis. No urinary tract stones are seen. There is a small amount of herniating fat in the right inguinal region with appearance suggestive of small direct and small indirect left inguinal hernias. The osseous structures demonstrate advanced degenerative changes. IMPRESSION: There is a large hiatal hernia with large fluid distention of the distal stomach within the hernia. The proximal stomach is in the left upper quadrant with a prominent air-fluid level. 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 The findings were discussed with CHARLOTTE Peraza taking care of the patient at time of dictation. Dictated by: Dictated on workstation # [id number] Dict: 09/15/17 1236 Trans: 09/15/17 1350 Interpreted by: HEIDY CAPPS MD Electronically signed by: HEIDY CAPPS MD 09/15/17 1350 Assessment/Plan Assessment and Plan 1. Abdominal pain primarily epigastric with CT findings of large hiatal hernia and volvulus -patient to be admitted to [facility] with surgical consultation -iV fluids are initiated -control nausea -Nothing by mouth for now 2. Urinary tract infection -patient initiated on IV Rocephin -urine culture pending Problems: Admission Diagnosis 1. Abdominal pain primarily epigastric with CT findings of large hiatal hernia and volvulus 2. Urinary tract infection Clinical Quality Measures DVT/VTE Risk/Contraindication: Risk Factor Score Per Nursin RFS Level Per Nursing on Admit: 2=Moderate APULIE BENAVIDEZ MD Sep 15, 2017 16:59
--- NOTE | 2017-09-15 17:53 | CONSULTATION REPORT ---
DATE OF SERVICE: 09/15/2017 HISTORY OF PRESENT ILLNESS: The patient is an 82-year-old male who we have seen before in the past. We had seen him for a right inguinal hernia and he did undergo a laparoscopic right inguinal hernia several years ago. He states that around October 2016, he did have similar symptoms of acute onset of nausea and vomiting and he did have a laparoscopic cholecystectomy performed. He states that the symptoms at that time were slightly similar to the symptoms that he has now. He reported after breakfast a sudden onset of nausea and vomiting as well as some epigastric pressure sensation as well as pain. After coming to the Emergency Department and after several bouts of nausea and vomiting, he states that he feels significantly better. 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 He is not showing any signs of sepsis. His white count is normal. He is afebrile. At this time, he does not report any issues with nausea or vomiting nor any chest pain. PAST MEDICAL HISTORY: BPH, hypertension. PAST SURGICAL HISTORY: Laparoscopic right inguinal hernia repair with mesh, laparoscopic cholecystectomy 10/2016. ALLERGIES: Sulfa. MEDICATIONS: Finasteride 5 mg daily, tamsulosin 0.4 mg daily, hydrocodone p.r.n. SOCIAL HISTORY: Negative smoke, negative alcohol. FAMILY HISTORY: Noncontributory. VITAL SIGNS: Temperature 97.1, blood pressure 133/79, pulse 88, respirations 18, pulse ox 96% on room air. REVIEW OF SYSTEMS: Well-nourished male, currently in no acute distress. He is not experiencing any shortness of breath or difficulty breathing. No chest pain, palpitations, diaphoresis. Previous bouts of nausea and vomiting with epigastric pressure sensation, which has relieved after several episodes of nausea. He reports that the majority of his vomitus was liquids and undigested food. No hematemesis, no coffee ground emesis. He states that he had a normal bowel movement this morning. No fever or chills. No recent inadvertent weight loss. All other review of systems is negative. PHYSICAL EXAMINATION: CHEST: Few scattered rales and rhonchi bilaterally. HEART: Regular, no murmurs. EXTREMITIES: No lower extremity edema, negative Homans sign. HEENT: No scleral icterus. No cervical lymphadenopathy. ABDOMEN: Soft, nontender and nondistended. No peritoneal signs. LABORATORY DATA: WBC 9.1, hemoglobin 16.0, hematocrit 47, platelets 209, BUN 21, creatinine 1.3, total bilirubin 1.9, lipase 18. 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 At this time, there does not appear to be a strangulation. He also reports that since several episodes of vomiting, he has felt much more comfortable with no epigastric pressure sensation or any pain and he has not had any nausea. We feel that he has had this significantly sized hiatal hernia for many years and has had some previous symptoms before; however, the size of the hernia has now reached the threshold where he does have a temporary incarceration. He does not show any signs or symptoms of strangulation and bowel ischemia with a normal white count, afebrile and currently, no abdominal pain. Due to the size of the hiatal hernia, we would recommend, if he wants to have the hiatal hernia fixed, to be evaluated at the tertiary center where they may proceed with a thoracic approach for repair versus a potential abdominal repair. Due to his age as well as the type of procedure, he is considered relatively high risk. Another thing that we can offer here is that if he has continued symptoms, is to proceed with an EGD and decompression as well as a percutaneous gastrostomy tube to pexy the fundus and body of the stomach more inferiorly in hopes of preventing incarceration of the stomach into the large hiatal hernia as a temporary measure. Job ID: [id number] DocumentID: [id number] Dictated Date: 09/15/2017 16:43:17 Tribal Judge Date: 09/15/2017 17:52:32 Dictated By: GUERA VERONICA MD
--- NOTE | 2017-09-15 19:12 | Diagnostic Imaging Report ---
INDICATION: Gastric volvulus. TECHNIQUE: Single view chest at 5:06 PM. CORRELATION STUDY: None FINDINGS: Heart size borderline. Vasculature within normal limits. Lungs with perhaps minimal basilar atelectasis. No infiltrate. May be trace effusions. Abnormal density in the retrocardiac region consistent with the known gastric volvulus and hiatal hernia. IMPRESSION: 1. Minimal basilar atelectasis with likely trace pleural effusions. Dictated by: Dictated on workstation # [id number]
[2017-09-15 19:37] VITALS: BP 135/69
[2017-09-15] MEDS ORDERED: FAMOTIDINE 20MG/2ML IV (PEPCID) IV SCH (21:00)
[2017-09-16] VITALS: BP 110/68
[2017-09-16] MEDS: NS IV 1000 ML 1,000 ML IV SCH ×2 (03:16→11:16)
[2017-09-16 04:00] VITALS: BP 117/63
[2017-09-16 06:53] LABS: BASOPHILS % (AUTO) 0 % (0-10); EOSINOPHILS # (AUTO) 0.1 10^3/uL (0.0-0.3); EOSINOPHILS % (AUTO) 1 % (0-10); LYMPHOCYTES # (AUTO) 0.8 X 10^3 (1.0-4.0); LYMPHOCYTES % (AUTO) 10 % (12-44); MEAN CORPUSCULAR HEMOGLOBIN 32 PG (25-34); MEAN CORPUSCULAR HGB CONC 34 G/DL (32-36); MEAN CORPUSCULAR VOLUME 95 FL (80-99); MEAN PLATELET VOLUME 10.2 FL (7.4-10.4); MONOCYTES # (AUTO) 0.5 X 10^3 (0.0-1.0); MONOCYTES % (AUTO) 7 % (0-12); NEUTROPHILS # (AUTO) 6.8 X 10^3 (1.8-7.8); NEUTROPHILS % (AUTO) 83 % (42-75); PLATELET COUNT 199 10^3/uL (130-400); RED BLOOD COUNT 4.32 10^6/uL (4.35-5.85); RED CELL DISTRIBUTION WIDTH 14.3 % (10.0-14.5); WHITE BLOOD COUNT 8.2 10^3/uL (4.3-11.0)
[2017-09-16 07:13] LABS: ALANINE AMINOTRANSFERASE 11 U/L (0-55); ALBUMIN 3.2 GM/DL (3.2-4.5); ANION GAP 7 MMOL/L (5-14); ASPARTATE AMINO TRANSFERASE 13 U/L (5-34); BILIRUBIN,TOTAL 2.3 MG/DL (0.1-1.0); BLOOD UREA NITROGEN 16 MG/DL (7-18); BUN/CREATININE RATIO 14; CARBON DIOXIDE 22 MMOL/L (21-32); CHLORIDE 112 MMOL/L (98-107); CREATININE SERUM 1.16 MG/DL (0.60-1.30); GFR ESTIMATED > 60; GLUCOSE 98 MG/DL (70-105); POTASSIUM 3.6 MMOL/L (3.6-5.0); SODIUM 141 MMOL/L (135-145); TOTAL PROTEIN 5.1 GM/DL (6.4-8.2)
--- NOTE | 2017-09-16 07:58 | Progress Note (SOAP) ---
Subjective Date Seen by Provider: Sep 16, 2017 Time Seen by Provider: 07:20 Subjective/Events-last exam Patient feeling much better and is actually walking around in the room upon rounds this morning. He reports he would like to go ahead and try to eat something. He is passing gas. He has not had a bowel movement but he informed me he is going to try this morning. Objective Exam Vital Signs Date Time Temp Pulse Resp B/P (MAP) Pulse Ox O2 Delivery O2 Flow Rate FiO2 09/16/17 04:00 98.3 79 17 117/63 92 Room Air 09/16/17 00:00 97.6 88 17 110/68 94 Room Air 09/15/17 19:37 98.4 99 18 135/69 95 Room Air 09/15/17 16:00 97.6 87 20 136/95 97 Room Air 09/15/17 15:51 Room Air 09/15/17 14:58 97.6 87 20 136/95 97 Room Air 09/15/17 14:49 98.2 78 18 97 09/15/17 09:32 97.1 88 18 133/79 96 Room Air Capillary Refill : Less Than 3 Seconds General Appearance: No Apparent Distress Respiratory: Lungs Clear Cardiovascular: Regular Rate, Rhythm Gastrointestinal: soft (And there is no tenderness.) Results Lab Laboratory Tests 09/15/17 10:03: White Blood Count 9.1, Red Blood Count 5.03, Hemoglobin 16.0, Hematocrit 47, Mean Corpuscular Volume 94, Mean Corpuscular Hemoglobin 32, Mean Corpuscular Hemoglobin Concent 34, Red Cell Distribution Width 14.1, Platelet Count 209, Mean Platelet Volume 10.0, Neutrophils (%) (Auto) 89H, Lymphocytes (%) (Auto) 7L , Monocytes (%) (Auto) 4, Eosinophils (%) (Auto) 1, Basophils (%) (Auto) 0, Neutrophils # (Auto) 8.1H, Lymphocytes # (Auto) 0.6L, Monocytes # (Auto) 0.3, Eosinophils # (Auto) 0.1, Basophils # (Auto) 0.0, Neutrophils % (Manual) 89, Lymphocytes % (Manual) 4, Monocytes % (Manual) 7, Eosinophils % (Manual) 0, Basophils % (Manual) 0, Band Neutrophils 0, Blood Morphology Comment NORMAL, Sodium Level 141, Potassium Level 4.1, Chloride Level 107, Carbon Dioxide Level 23, Anion Gap 11, Blood Urea Nitrogen 21H, Creatinine 1.33H, Estimat Glomerular Filtration Rate 52, BUN/Creatinine Ratio 16, Glucose Level 117H, Calcium Level 9.0, Total Bilirubin 1.9H, Aspartate Amino Transf (AST/SGOT) 17, Alanine Aminotransferase (ALT/SGPT) 17, Alkaline Phosphatase 81, Total Protein 6.5, Albumin 4.0, Lipase 18 09/15/17 11:00: Urine Color YELLOW, Urine Clarity CLEAR, Urine pH 6, Urine Specific [place] 1.015L, Urine Protein NEGATIVE, Urine Glucose (UA) NEGATIVE, Urine Ketones NEGATIVE, Urine Nitrite POSITIVEH, Urine Bilirubin NEGATIVE, Urine Urobilinogen NORMAL, Urine Leukocyte Esterase 3+H, Urine RBC (Auto) 2+H, Urine RBC NONE, Urine WBC 5-10H, Urine Squamous Epithelial Cells NONE, Urine Crystals NONE, Urine Amorphous Sediment LARGE LUIS ENRIQUE URATESH, Urine Bacteria MODERATEH, Urine Casts NONE, Urine Mucus NEGATIVE, Urine Culture Indicated YES 09/16/17 06:26: White Blood Count 8.2, Red Blood Count 4.32L, Hemoglobin 13.9, Hematocrit 41, Mean Corpuscular Volume 95, Mean Corpuscular Hemoglobin 32, Mean Corpuscular Hemoglobin Concent 34, Red Cell Distribution Width 14.3, Platelet Count 199, Mean Platelet Volume 10.2, Neutrophils (%) (Auto) 83H, Lymphocytes (%) (Auto) 10L, Monocytes (%) (Auto) 7, Eosinophils (%) (Auto) 1, Basophils (%) (Auto) 0, Neutrophils # (Auto) 6.8, Lymphocytes # (Auto) 0.8L, Monocytes # (Auto) 0.5, Eosinophils # (Auto) 0.1, Basophils # (Auto) 0.0, Sodium Level 141, Potassium Level 3.6, Chloride Level 112H, Carbon Dioxide Level 22, Anion Gap 7, Blood Urea Nitrogen 16, Creatinine 1.16, Estimat Glomerular Filtration Rate > 60, BUN/ Creatinine Ratio 14, Glucose Level 98, Calcium Level 8.0L, Total Bilirubin 2.3H , Aspartate Amino Transf (AST/SGOT) 13, Alanine Aminotransferase (ALT/SGPT) 11, Alkaline Phosphatase 63, Total Protein 5.1L, Albumin 3.2 Assessment/Plan Assessment/Plan Assess & Plan/Chief Complaint 1. Abdominal pain primarily epigastric with CT findings of large hiatal hernia and volvulus -patient to be admitted to [facility] with surgical consultation -iV fluids are initiated -control nausea -Nothing by mouth for now 09/16 will give clear liquid diet this morning 2. Urinary tract infection -patient initiated on IV Rocephin -urine culture pending 09/16 culture still pending Clinical Quality Measures DVT/VTE Risk/Contraindication: Risk Factor Score Per Nursin RFS Level Per Nursing on Admit: 2=Moderate ABIODUN BENAVIDEZ MD Sep 16, 2017 07:58
[2017-09-16 08:00] VITALS: BP 136/80
[2017-09-16] MEDS ORDERED: cefTRIAXone INJECTION 1,000 MG in NS (IVPB) 50 ML IV SCH (09:00)
[2017-09-16 12:00] VITALS: BP 132/79
[2017-09-16 15:42] VITALS: BP 143/84
--- NOTE | 2017-09-16 16:06 | Progress Note (SOAP) ---
Subjective Date Seen by Provider: Sep 16, 2017 Time Seen by Provider: 16:00 Subjective/Events-last exam doing much better today. tolerating clears. no abdominal pain. no nausea/ vomiting. Objective Exam Vital Signs Date Time Temp Pulse Resp B/P (MAP) Pulse Ox O2 Delivery O2 Flow Rate FiO2 09/16/17 15:42 97.0 74 18 143/84 98 Room Air 09/16/17 12:00 96.3 90 16 132/79 97 Room Air 09/16/17 08:00 96.6 74 18 136/80 95 Room Air 09/16/17 04:00 98.3 79 17 117/63 92 Room Air 09/16/17 00:00 97.6 88 17 110/68 94 Room Air 09/15/17 19:37 98.4 99 18 135/69 95 Room Air Capillary Refill : Less Than 3 Seconds General Appearance: No Apparent Distress HEENT: PERRL/EOMI Neck: Full Range of Motion Respiratory: Chest Non Tender, Lungs Clear, Normal Breath Sounds Cardiovascular: Regular Rate, Rhythm Gastrointestinal: normal bowel sounds, non tender, soft Extremity: Normal Capillary Refill Neurologic/Psychiatric: Alert, Oriented x3 Skin: Normal Color Lymphatic: No Adenopathy Results Lab Laboratory Tests 09/16/17 06:26: White Blood Count 8.2, Red Blood Count 4.32L, Hemoglobin 13.9, Hematocrit 41, Mean Corpuscular Volume 95, Mean Corpuscular Hemoglobin 32, Mean Corpuscular Hemoglobin Concent 34, Red Cell Distribution Width 14.3, Platelet Count 199, Mean Platelet Volume 10.2, Neutrophils (%) (Auto) 83H, Lymphocytes (%) (Auto) 10L, Monocytes (%) (Auto) 7, Eosinophils (%) (Auto) 1, Basophils (%) (Auto) 0, Neutrophils # (Auto) 6.8, Lymphocytes # (Auto) 0.8L, Monocytes # (Auto) 0.5, Eosinophils # (Auto) 0.1, Basophils # (Auto) 0.0, Sodium Level 141, Potassium Level 3.6, Chloride Level 112H, Carbon Dioxide Level 22, Anion Gap 7, Blood Urea Nitrogen 16, Creatinine 1.16, Estimat Glomerular Filtration Rate > 60, BUN/ Creatinine Ratio 14, Glucose Level 98, Calcium Level 8.0L, Total Bilirubin 2.3H , Aspartate Amino Transf (AST/SGOT) 13, Alanine Aminotransferase (ALT/SGPT) 11, Alkaline Phosphatase 63, Total Protein 5.1L, Albumin 3.2 Microbiology 09/15/17 Urine Culture - Preliminary, Resulted Probable Coag Negative Staph Assessment/Plan Assessment/Plan Assess & Plan/Chief Complaint symptomatic large hiatal hernia with previous incarceration. spontaneously reduced. advance diet to dys3. ok for home if salomon diet. Clinical Quality Measures DVT/VTE Risk/Contraindication: Risk Factor Score Per Nursin RFS Level Per Nursing on Admit: 2=Moderate GUERA VERONICA MD Sep 16, 2017 16:06
--- NOTE | 2017-09-16 16:08 | Discharge Inst-Surgical ---
D/C Lap Instructions-GLENYS Follow Up PRN Activity as tolerated High Fiber Diet 25g or more per day Avoid Alcohol, Caffeine, Spicy Shepherd and Acid foods. Drink 64 fluid oz or more of fluids per day. Symptoms to Report: Fever over 101 degree F, Nausea/Vomiting If any problems/questions: Contact your physician or go to Emergency Room GUERA VERONICA MD Sep 16, 2017 16:07
[2017-09-16 16:45] VITALS: BP 143/84
== END 2017-09-16 16:01 | disposition home or self-care (01) ==
LOC: EDUNIT# 09:14 → ER 09:15 → UNDOADMOB 14:17 → 4TH 14:17 → UNDODISOB 09-16 17:05
PROVIDERS: ADMIT Family Medicine; ATTEND Family Medicine
DX: K31.89 Other diseases of stomach and duodenum (principal); K44.9 Diaphragmatic hernia without obstruction or gangrene; I10 Essential (primary) hypertension; Z79.899 Other long term (current) drug therapy; Z90.49 Acquired absence of other specified parts of digestive tract
CPT/HCPCS: 36415; 71010; 74176; 80053; 81000; 83690; 85007; 85025; 85027; 87088; 87186; G0378

== ENCOUNTER 2022-04-27 05:33 | Outpatient (CLI) | payer MEDICARE ==
[~2022-04-27] VITALS: Ht 167.7 cm; Wt 65.9 kg
[~2022-04-27 05:33] MED LIST changes: +ACHD5005 PO; -HYDR-3812 PO; +TAMS0.4C2 PO
== END 2022-04-29 08:54 | disposition home or self-care (01) ==
LOC: PREOP 05:33
PROVIDERS: ATTEND Specialist
DX: Z01.818 Encounter for other preprocedural examination (principal)

== ENCOUNTER 2022-05-01 08:44 | Day surgery (SDC) | payer MEDICARE ==
[~2022-05-01] VITALS: Ht 167.7 cm; Wt 65.9 kg
[2022-05-01] MEDS ORDERED: LIDOCAINE PF 1% 2 ML VIAL IR PRN (09:00)
[2022-05-01] MEDS ORDERED: TIMOLOL MALEATE 0.5% 5 ML (TIMOPTIC) BTL OU PRN (09:00)
[2022-05-01] MEDS ORDERED: POVIDONE (BETADINE) OPHTH SOLN 5% 30 ML OP ONE (09:00)
[2022-05-01] MEDS: TETRACAINE 0.5% OPHTH SOLN 4 ML BTL (SINGLE DOSE ONLY) OU PRN ×4 (09:00→09:17)
[2022-05-01] MEDS ORDERED: MOXIFLOXACIN OPHTH SOLN 5 MG/ML 0.3 ML SYRINGE OP ONE (09:00)
[2022-05-01 09:05] VITALS: BP 122/75
[2022-05-01] MEDS: TROPICAMIDE 1% OPH SOLN (MYDRIACYL) 15 ML BTL OP SCH ×3 (09:07→09:17)
[2022-05-01] MEDS: PHENYLEPHRINE 10% OPHTH (NEO-SYN) 5 ML BTL OU SCH ×3 (09:07→09:17)
--- NOTE | 2022-05-01 09:38 | Ophthalmologist Pre-Op Note ---
Pre-Operative Progress Note H&P Reviewed The H&P was reviewed, patient examined and no changes noted. Date H&P Reviewed: May 01, 2022 Time H&P Reviewed: 09:38 Pre-Op Dx Cataract, Right Eye MINNIE WILLIAM MD May 01, 2022 09:38
[2022-05-01] MEDS ORDERED: MIDAZOLAM 2 MG/2 ML (VERSED) VIAL ONE (09:40)
--- NOTE | 2022-05-01 10:02 | Ophthalmology Operative Report ---
Cataract removal/placement IOL PREOPERATIVE DIAGNOSIS: Cataract Right Eye POSTOPERATIVE DIAGNOSIS: Cataract Right Eye PROCEDURE: Cataract removal and placement of posterior chamber implant, right eye SURGEON: Sergio William ANESTHESIA: Topical with sedation COMPLICATIONS: None ESTIMATED BLOOD LOSS: Minimal DESCRIPTION OF PROCEDURE: After proper informed consent was obtained, the patient, a 86 male, was taken to the Operating Room and the right eye was anesthetized with tetracaine. The right eye was then prepped and draped in the usual manner. A wire lid speculum was placed. A paracentesis was made at the left hand position. Preservative free lidocaine was injected into the anterior chamber followed by viscoelastic. A clear corneal incision was made in the temporal position. A capsulorrhexis was preformed and the central nuclear and cortical material were removed. The posterior capsule was polished and Eric [id number] 18.5 IOL was placed into the capsular bag. The residual viscoelastic was aspirated and balanced saline solution was injected into the anterior chamber. Moxifloxacin was injected into the anterior chamber. The wound was checked and found to be water tight. The patient tolerated the procedure well without complications. SERGIO WILLIAM MD May 01, 2022 10:02
[2022-05-01 10:06] VITALS: BP 103/71
--- NOTE | 2022-05-01 12:46 | Anesthesia-General Post-Op ---
MAC Patient Condition Mental Status/LOC: Same as Preop Cardiovascular: Satisfactory Nausea/Vomiting: Absent Respiratory: Satisfactory Pain: Controlled Complications: Absent Post Op Complications Complications None Follow Up Care/Instructions Patient Instructions None needed. Anesthesiology Discharge Order Discharge Order Patient is doing well, no complaints, stable vital signs, no apparent adverse anesthesia problems. No complications reported per nursing. JOB HICKS CRNA May 01, 2022 12:46
== END 2022-05-01 10:08 | disposition home or self-care (01) ==
LOC: SDC 08:44
PROVIDERS: ATTEND Specialist
DX: H25.9 Unspecified age-related cataract (principal); Z87.891 Personal history of nicotine dependence
CPT/HCPCS: 66984; V2632

== ENCOUNTER 2022-05-12 05:41 | Outpatient (CLI) | payer MEDICARE ==
[~2022-05-12] VITALS: Ht 167 cm; Wt 65.9 kg
== END 2022-05-19 11:57 | disposition home or self-care (01) ==
LOC: PREOP 05:41
PROVIDERS: ATTEND Specialist
DX: Z01.818 Encounter for other preprocedural examination (principal)

== ENCOUNTER 2022-05-22 08:03 | Day surgery (SDC) | payer MEDICARE ==
[~2022-05-22] VITALS: Ht 167 cm; Wt 65.9 kg
[2022-05-22] MEDS: TETRACAINE 0.5% OPHTH SOLN 4 ML BTL (SINGLE DOSE ONLY) OU PRN ×4 (08:13→08:30)
[2022-05-22] MEDS ORDERED: MOXIFLOXACIN OPHTH SOLN 5 MG/ML 0.3 ML SYRINGE OP ONE (08:15)
[2022-05-22] MEDS ORDERED: TIMOLOL MALEATE 0.5% 5 ML (TIMOPTIC) BTL OU PRN (08:15)
[2022-05-22] MEDS ORDERED: POVIDONE (BETADINE) OPHTH SOLN 5% 30 ML OP ONE (08:15)
[2022-05-22] MEDS ORDERED: LIDOCAINE PF 1% 2 ML VIAL IR PRN (08:15)
[2022-05-22 08:17] VITALS: BP 139/80
[2022-05-22] MEDS: TROPICAMIDE 1% OPH SOLN (MYDRIACYL) 15 ML BTL OP SCH ×3 (08:20→08:30)
[2022-05-22] MEDS: PHENYLEPHRINE 10% OPHTH (NEO-SYN) 5 ML BTL OU SCH ×3 (08:20→08:30)
[2022-05-22] MEDS ORDERED: MIDAZOLAM 2 MG/2 ML (VERSED) VIAL ONE (08:38)
--- NOTE | 2022-05-22 08:54 | Ophthalmologist Pre-Op Note ---
Pre-Operative Progress Note H&P Reviewed The H&P was reviewed, patient examined and no changes noted. Date H&P Reviewed: May 22, 2022 Time H&P Reviewed: 08:54 Pre-Op Dx Cataract, Left Eye MINNIE WILLIAM MD May 22, 2022 08:54
--- NOTE | 2022-05-22 09:15 | Ophthalmology Operative Report ---
Cataract removal/placement IOL PREOPERATIVE DIAGNOSIS: Cataract Left Eye POSTOPERATIVE DIAGNOSIS: Cataract Left Eye PROCEDURE: Cataract removal and placement of posterior chamber implant, left eye SURGEON: Sergio William ANESTHESIA: Topical with sedation COMPLICATIONS: None ESTIMATED BLOOD LOSS: Minimal DESCRIPTION OF PROCEDURE: After proper informed consent was obtained, the patient, a 86 male, was taken to the Operating Room and the left eye was anesthetized with tetracaine. The left eye was then prepped and draped in the usual manner. A wire lid speculum was placed. A paracentesis was made at the left hand position. Preservative free lidocaine was injected into the anterior chamber followed by viscoelastic. A clear corneal incision was made in the temporal position. A capsulorrhexis was preformed and the central nuclear and cortical material were removed. The posterior capsule was polished and an Eric 18.5 [id number] was placed into the capsular bag. The residual viscoelastic was aspirated and balanced saline solution was injected into the anterior chamber. Moxifloxacin was injected into the anterior chamber. The wound was checked and found to be water tight. The patient tolerated the procedure well without complications. SERGIO WILLIAM MD May 22, 2022 09:15
[2022-05-22 09:23] VITALS: BP 121/67
[2022-05-22] MEDS ORDERED: acetaZOLAMIDE ER 500 MG CAP (DIAMOX SEQUELS) PO ONE (10:30)
--- NOTE | 2022-05-22 13:43 | Anesthesia-General Post-Op ---
MAC Patient Condition Mental Status/LOC: Same as Preop Cardiovascular: Satisfactory Nausea/Vomiting: Absent Respiratory: Satisfactory Pain: Controlled Complications: Absent Post Op Complications Complications None Follow Up Care/Instructions Patient Instructions None needed. Anesthesiology Discharge Order Discharge Order Patient is doing well, no complaints, stable vital signs, no apparent adverse anesthesia problems. No complications reported per nursing. DION DEL TORO CRNA May 22, 2022 13:43
== END 2022-05-22 09:28 | disposition home or self-care (01) ==
LOC: SDC 08:03
PROVIDERS: ATTEND Specialist
DX: H25.9 Unspecified age-related cataract (principal); Z87.891 Personal history of nicotine dependence
CPT/HCPCS: 66984; V2632

== ENCOUNTER → 2022-07-17 | Outpatient (CLI) | payer MEDICARE ==
[~2022-07-17] MED LIST changes: +CATHETER FLUSH 10 ML SYR IV PRN; +HOLD METFORMIN - RECEIVED CONTRAST 20 ML VIAL IV SCH; +IOHEXOL 350 MG/ML 100 ML (OMNIPAQUE 350) VIAL IV ONE; +NS 100 ML (IVPB) BAG IV ONE
[2022-07-17 12:02] LABS: CREATININE SERUM 1.32 MG/DL (0.60-1.30)
--- NOTE | 2022-07-17 14:51 | Diagnostic Imaging Report ---
PROCEDURE: CT neck soft tissue with contrast. TECHNIQUE: Multiple contiguous axial images were obtained through the neck after the administration of contrast. Auto Exposure Controls were utilized during the CT exam to meet ALARA standards for radiation dose reduction. INDICATION: Right vocal cord lesion and hoarseness. FINDINGS: There is some asymmetric soft tissue nodularity involving the right true vocal fold. This measures approximately 9 x 8 mm. There is no thickening of the anterior commissure itself. The regional laryngeal fat planes appear to otherwise maintained appropriate fat density. This could reflect a focal cord polyp or neoplasm. There are no findings of laryngeal cartilaginous erosions. There is no extralaryngeal abnormality evident. The posterior nasopharynx and oropharynx appear appropriately symmetric. There is no displacement of the paravertebral fat planes. The base of the tongue is unremarkable. There is no thickening of the epiglottis. The vallecula and piriform sinuses are aerated. There are no findings of pathologically enlarged cervical lymph nodes. The parotid, submandibular glands and thyroid gland are unremarkable The vascular structures the neck demonstrate no high-grade arterial stenosis or evidence to suggest jugular vein thrombosis The visualized intracranial contents demonstrate no mass effect or abnormal enhancement. The orbits are unremarkable. There is a mucous retention cyst in the right maxillary sinus and mucosal thickening in the left. The mastoids and the middle ears appear clear. The lung apices are clear. Cervical spine demonstrates multilevel degenerative disc disease and facet arthropathy without findings of an acute osseous injury or suspicious marrow replacing lesion. IMPRESSION: 1. Small nodular density along the right true vocal fold may reflect a small vocal cord polyp or neoplasm. There is no widening of the anterior commissure. The adjacent fat planes appear preserved. There is no extralaryngeal abnormality or cartilaginous erosion. 2. No findings of pathologic enlargement of cervical lymph nodes. 3. The aerodigestive tract is otherwise appropriately symmetric. Dictated by: Dictated on workstation # [id number]
== END ==
LOC: RAD 11:22
PROVIDERS: ATTEND Otolaryngology Otolaryngology/Facial Plastic Surgery
DX: J38.3 Other diseases of vocal cords (principal)
CPT/HCPCS: 36415; 70491; 82565; 84520

== ENCOUNTER 2022-07-23 05:39 | Outpatient (CLI) | payer MEDICARE ==
[~2022-07-23] VITALS: Ht 167.7 cm; Wt 68.2 kg
[~2022-07-23 05:39] MED LIST changes: -CATHETER FLUSH 10 ML SYR IV PRN; -HOLD METFORMIN - RECEIVED CONTRAST 20 ML VIAL IV SCH; -IOHEXOL 350 MG/ML 100 ML (OMNIPAQUE 350) VIAL IV ONE; -NS 100 ML (IVPB) BAG IV ONE
== END 2022-07-27 09:24 | disposition home or self-care (01) ==
LOC: PREOP 05:39
PROVIDERS: ATTEND Otolaryngology Otolaryngology/Facial Plastic Surgery
DX: Z01.818 Encounter for other preprocedural examination (principal)

== ENCOUNTER 2022-07-31 07:19 | Day surgery (SDC) | payer MEDICARE ==
[2022-07-31] VITALS (10 sets, daily range): BP systolic 112–132; BP diastolic 64–90
[~2022-07-31] VITALS: Ht 167 cm; Wt 68.2 kg
[2022-07-31] MEDS ORDERED: LACTATED RINGERS 1,000 ML IV PRN (07:30)
[2022-07-31 08:04] LABS: BASOPHILS % (AUTO) 0 % (0-10); EOSINOPHILS # (AUTO) 0.1 10^3/uL (0.0-0.3); EOSINOPHILS % (AUTO) 1 % (0-10); HEMATOCRIT 46 % (40-54); HEMOGLOBIN 15.5 g/dL (13.3-17.7); LYMPHOCYTES # (AUTO) 0.5 10^3/uL (1.0-4.0); LYMPHOCYTES % (AUTO) 6 % (12-44); MEAN CORPUSCULAR HEMOGLOBIN 32 pg (25-34); MEAN CORPUSCULAR HGB CONC 34 g/dL (32-36); MEAN CORPUSCULAR VOLUME 94 fL (80-99); MEAN PLATELET VOLUME 9.8 fL (9.0-12.2); MONOCYTES # (AUTO) 0.6 10^3/uL (0.0-1.0); MONOCYTES % (AUTO) 6 % (0-12); NEUTROPHILS # (AUTO) 8.1 10^3/uL (1.8-7.8); NEUTROPHILS % (AUTO) 87 % (42-75); PLATELET COUNT 179 10^3/uL (130-400); WHITE BLOOD COUNT 9.2 10^3/uL (4.3-11.0)
[2022-07-31 08:16] LABS: POTASSIUM 3.4 MMOL/L (3.6-5.0)
[2022-07-31 08:17] LABS: CALCIUM 8.7 MG/DL (8.5-10.1)
[2022-07-31 08:21] LABS: CREATININE SERUM 1.29 MG/DL (0.60-1.30)
[2022-07-31 08:34] LABS: BAND NEUTROPHILS 2 %; BASOPHILS % (MANUAL) 1 %; EOSINOPHILS % (MANUAL) 0 %; LYMPHOCYTES % (MANUAL) 7 %; MONOCYTES % (MANUAL) 5 %; NEUTROPHILS % (MANUAL) 85 %; RBC MORPH NORMAL
--- NOTE | 2022-07-31 08:35 | Progress Note-Pre Operative ---
Pre-Operative Progress Note Date of Available H&P: Jul 31, 2022 Date H&P Reviewed: Jul 31, 2022 Time H&P Reviewed: 08:00 History & Physical: H&P Reviewed, Patient Examed, No changes noted Changes from last HP none Pre-Operative Diagnosis: Right Vocal Cord Lesion/Hoarseness GLORIA TEJADA MD Jul 31, 2022 08:35
--- NOTE | 2022-07-31 08:36 | Progress Note-Post Operative ---
Post-Operative Progess Note Surgeon (s)/Hr Advisor (s) Surgeon GLORIA TEJADA MD Hr Advisor n/a Pre-Operative Diagnosis Right Vocal Cord Lesion/Hoarseness Post-Operative Diagnosis same Post-Op Procedure Note Date of Procedure: Jul 31, 2022 Name of Procedure Performed: Direct Laryngosocpy with Removal of Right Vocal Cord Lesion Description & Findings Description and Findings: n/a Anesthesia Type get Estimated Blood Loss minimal Packing none. Specimen(s) collected/removed right vocal cord lesion GLORIA TEJADA MD Jul 31, 2022 08:36
[2022-07-31] MEDS ORDERED: LIDOCAINE/EPI 2% 1:200,00 (XYLOCAINE) 20 ML VIAL ONE (08:41)
[2022-07-31] MEDS ORDERED: PROMETHAZINE INJ 25 MG/ML (PHENERGAN) AMP IV PRN (08:45)
[2022-07-31] MEDS ORDERED: HYDROcodone/APAP 5 MG/325 MG (LORTAB) TAB PO PRN (08:45)
[2022-07-31] MEDS ORDERED: ROCURONIUM 10 MG/ML 5 ML SYRINGE IV ONE (08:46)
[2022-07-31] MEDS ORDERED: LIDOCAINE PF 2% 5 ML (XYLOCAINE) VIAL ONE (08:46)
[2022-07-31] MEDS ORDERED: proPOfol 200 MG/20 ML (DIPRIVAN) VIAL IV ONE (08:46)
[2022-07-31] MEDS ORDERED: ONDANSETRON 4 MG/2 ML (SDV) Z0FRAN ONE (08:46)
[2022-07-31] MEDS ORDERED: fentaNYL INJ 100 MCG/2 ML AMP ONE (08:46)
[2022-07-31] MEDS ORDERED: MIDAZOLAM 2 MG/2 ML (VERSED) VIAL ONE (08:47)
[2022-07-31] MEDS ORDERED: NEOSTIGMINE (BLOXIVERZ ) 1 MG/1ML 10 ML VIAL ONE (09:39)
[2022-07-31] MEDS ORDERED: GLYCOPYRROLATE 0.2 MG/ML (ROBINUL) 2 ML VIAL ONE (09:39)
[2022-07-31] MEDS ORDERED: SEVOFLURANE (ULTANE) 15 ML INHAL SOLN ONE (09:40)
[2022-07-31] MEDS ORDERED: PHENYLEPHRINE 100 MCG/ML 10 ML (ANESTHESIA) SYR ONE (09:45)
--- NOTE | 2022-07-31 09:55 | Anesthesia-General Post-Op ---
General Patient Condition Mental Status/LOC: Same as Preop Cardiovascular: Satisfactory Nausea/Vomiting: Absent Respiratory: Satisfactory Pain: Controlled Complications: Absent Post Op Complications Complications None Follow Up Care/Instructions Patient Instructions None needed. Anesthesia/Patient Condition Patient Condition Patient is doing well, no complaints, stable vital signs, no apparent adverse anesthesia problems. No complications reported per nursing. JOB HICKS CRNA Jul 31, 2022 09:55
[2022-07-31] MEDS ORDERED: ONDANSETRON 4 MG/2 ML (SDV) Z0FRAN IVP PRN (10:00)
[2022-07-31] MEDS ORDERED: ACHD5005 PO (10:31)
== END 2022-07-31 11:38 | disposition home or self-care (01) ==
LOC: SDC 07:19
PROVIDERS: ATTEND Otolaryngology Otolaryngology/Facial Plastic Surgery
DX: J38.3 Other diseases of vocal cords (principal); K21.9 Gastro-esophageal reflux disease without esophagitis; R49.0 Dysphonia
CPT/HCPCS: 36415; 80048; 85007; 85027; 87081; 93005